=== PATIENT | female | born 1990 | race Two or more races ===

== ENCOUNTER 2016-12-31 09:14 | Emergency (ER) | payer OTHER ==
[~2016-12-31] VITALS: Ht 162.6 cm; Wt 64.0 kg
[2016-12-31 10:39] VITALS: BP 126/66
== END 2016-12-31 10:39 | disposition home or self-care (01) ==
LOC: ED 09:14
DX: S39.012A Strain of muscle, fascia and tendon of lower back, initial encounter (principal); X58.XXXA Exposure to other specified factors, initial encounter; Y93.89 Activity, other specified; Y99.8 Other external cause status; Y92.89 Other specified places as the place of occurrence of the external cause
CPT/HCPCS: J0690; J1885

== ENCOUNTER 2017-07-19 09:43 | Emergency (ER) | payer OTHER ==
[~2017-07-19] VITALS: Ht 165.1 cm; Wt 60.8 kg
[2017-07-19 10:02] VITALS: Ht 165.1 cm; Wt 60.8 kg
[2017-07-19 13:05] VITALS: BP 110/80
== END 2017-07-19 13:05 | disposition home or self-care (01) ==
LOC: ED 09:43
DX: N93.9 Abnormal uterine and vaginal bleeding, unspecified (principal)